=== PATIENT | male | born 1955 | race Caucasian/White ===

== ENCOUNTER → 2024-03-11 12:32 | Outpatient (BNVA) | payer MEDICARE, OTHER, SELFPAY | PROVIDERS: Family Provider Family Medicine; PCP Family Medicine; Visit Provider Nurse Practitioner Family | DX: L57.0 Actinic keratosis (principal); L40.0 Psoriasis vulgaris; L40.59 Other psoriatic arthropathy; L60.1 Onycholysis; L60.8 Other nail disorders; L72.11 Pilar cyst; L82.1 Other seborrheic keratosis | CPT/HCPCS: 17000; 99204 ==